=== PATIENT | female | born 1960 | race Caucasian/White ===

== ENCOUNTER 2025-02-17 06:27 | Observation (INO) | payer OTHER ==
[2025-02-17] MEDS ORDERED: CEFAZOLIN 2 GM VIAL ONE (07:51)
[2025-02-17] MEDS ORDERED: Ropivacaine 0.5% HCl/PF (150 MG/30 ML VIAL) ONE (08:16)
[2025-02-17] MEDS ORDERED: fentaNYL PF 100 MCG/2 ML SYRINGE ONE (08:39)
[2025-02-17] MEDS ORDERED: PROPOFOL 40 ML ONE (08:39)
[2025-02-17] MEDS ORDERED: Lidocaine 1% PF 5 ML VIAL ONE (08:39)
[2025-02-17] MEDS ORDERED: Ondansetron PF 4 MG/2 ML Vial ONE (08:39)
[2025-02-17] MEDS ORDERED: Ropivacaine 0.2% 550 ML 550 ML NERVE BLCK SCH (09:00)
[2025-02-17] MEDS ORDERED: Ondansetron PF 4 MG/2 ML Vial IVP PRN (09:00)
[2025-02-17] MEDS ORDERED: Glycopyrrolate 0.2 MG/ML 5 ML SYRINGE ONE (09:11)
[2025-02-17] MEDS ORDERED: HYDROcodone/Acetaminophen 5/325 mg Tablet PO PRN (11:54)
[2025-02-17] MEDS ORDERED: PHARMACY TO RENALLY ADJUST ABX FS SCH (12:00)
[2025-02-17] MEDS: Ketorolac Tromethamine 30 MG (1 mL) VIAL IVP SCH (16:01)
[2025-02-17] MEDS: Gabapentin 300 MG CAP PO SCH (16:06)
[2025-02-17 17:47] VITALS: BMI 27.8
[2025-02-17] MEDS: Calcium Carbonate 600 MG + Vit D TAB PO SCH (21:08)
[2025-02-17] MEDS: Pantoprazole 40 MG DR.TAB PO SCH (21:08)
[2025-02-18] MEDS: HYDROcodone/Acetaminophen 10/325 mg Tablet PO PRN ×2 (01:16→08:11)
[2025-02-18 05:48] LABS: #Basophils Less than 0.03 10x3/uL (0.0-0.2); #Eosinophils 0.09 10x3/uL (0.0-0.7); #Monocytes 0.48 10x3/uL (0.11-0.59); #Neutrophils 2.93 10x3/uL (1.40-6.50); %Basophils 0.5 % (0.0-1.0); %Eosinophils 2.0 % (0.0-10.0); %Lymphocytes 20.3 % (21.0-51.0); %Monocytes 10.8 % (0.0-10.0); %Neutrophils 66.2 % (42.0-75.0); Hematocrit 31.2 % (36.0-47.0); Hemoglobin 9.7 g/dL (12.0-16.0); Mean Corpuscular Hemoglobin 33.0 pg (27.0-31.0); Mean Corpuscular Volume 106.1 fL (78.0-98.0); Platelet Count 134 10x3/uL (130-400); Red Blood Cell (RBC) Count 2.94 mill/uL (4.20-5.40); White Blood Cell (WBC) Count 4.43 10x3/uL (4.8-10.8)
[2025-02-18] MEDS: Citalopram 20 MG TAB PO SCH (08:12)
[2025-02-18] MEDS: Enoxaparin 40 MG (0.4 mL) SYRINGE SC SCH (08:12)
[2025-02-18 12:20] VITALS: BP 92/61; TEMP 98.3
== END 2025-02-18 15:25 | disposition home or self-care (01) ==
LOC: SDC 06:27 → SURG A 11:54 → INTOOBSV 11:54
PROVIDERS: ADMIT Orthopaedic Surgery; ATTEND Orthopaedic Surgery
PROC: 0SGF04Z Fusion of Right Ankle Joint with Internal Fixation Device, Open Approach (ICD-10-PCS; principal; 2025-02-17)
PROC: 3E0T3BZ Introduction of Anesthetic Agent into Peripheral Nerves and Plexi, Percutaneous Approach (ICD-10-PCS; 2025-02-17)
DX: S82.891P Other fracture of right lower leg, subsequent encounter for closed fracture with malunion (principal); F17.200 Nicotine dependence, unspecified, uncomplicated; Z87.59 Personal history of other complications of pregnancy, childbirth and the puerperium; Z90.89 Acquired absence of other organs; Z90.710 Acquired absence of both cervix and uterus; Z90.49 Acquired absence of other specified parts of digestive tract; Z88.2 Allergy status to sulfonamides; Z88.8 Allergy status to other drugs, medicaments and biological substances; X58.XXXD Exposure to other specified factors, subsequent encounter
CPT/HCPCS: 36415; 85025; 87070; 87205; A4306; C1713; J0166; J1100; J1650; J1885; J2250; J2405; J2704; J2795; J3010